=== PATIENT | female | born 1950 | race Caucasian/White ===

== ENCOUNTER → 2019-09-05 14:31 | Outpatient (BNVA) | payer MEDICARE, BC, SELFPAY | PROVIDERS: Family Provider Family Medicine; PCP Family Medicine; Visit Provider Nurse Practitioner Family | DX: R05 Cough (principal); J02.9 Acute pharyngitis, unspecified; J06.9 Acute upper respiratory infection, unspecified; Z20.828 Contact with and (suspected) exposure to other viral communicable diseases; Z71.89 Other specified counseling | CPT/HCPCS: 87071; 87400; 87635; 87880 ==

== ENCOUNTER → 2019-11-29 12:51 | Outpatient (BNVA) | payer MEDICARE, BC, SELFPAY | PROVIDERS: Family Provider Family Medicine; PCP Family Medicine; Visit Provider Family Medicine | DX: I10 Essential (primary) hypertension (principal); E11.9 Type 2 diabetes mellitus without complications; E03.8 Other specified hypothyroidism; Z79.4 Long term (current) use of insulin; I70.1 Atherosclerosis of renal artery | CPT/HCPCS: 80053; 84443; 85025 ==

== ENCOUNTER 2019-12-06 07:59 | Outpatient (CLI) | payer MEDICARE, BC, SELFPAY ==
--- NOTE | 2019-12-06 08:00 | USCV_ITS ---
Vida Ramon Age: 68 Gender: F : 1950 Exam Date: 12/06/2019 08:21 Ordering Phys: Lauren May MD Technologist: Pita Cheatham Exam Location: [facility] [place] Indication: PT STATES HYPERTENSION Aortic Velocity @ SMA (cm/s) 52 RIGHT KIDNEY LEFT KIDNEY Velocity (cm/s) Velocity (cm/s) Sys/Pelayo Sys/Pelayo Resistive Index Resistive Index 17.5 / 6.5 0.63 Proximal Renal Artery 31.3 / 7.3 0.77 33.5 / 7.9 0.76 Mid Renal Artery 34.2 / 10.6 0.69 25.9 / 9.0 0.65 Distal Renal Artery 68.8 / 15.7 0.77 37.7 / 15.2 0.60 Hilar 66.9 / 23.6 0.65 28.9 / 6.9 0.76 Upper Pole 41.0 / 14.7 0.64 41.3 / 12.5 0.70 Mid Pole 34.2 / 9.6 0.72 36.8 / 11.3 0.69 Lower Pole 31.4 / 7.0 0.78 1.40 Renal Aortic Ratio 1.32 Accleration Index (cm/sec2) 518.00 Hilar 435.00 163.00 Upper Pole 254.00 151.00 Mid Pole 141.00 154.00 Lower Pole 105.00 93.2 Kidney Length (mm) 83.5 FINDINGS No evidence of abdominal aortic aneurysm. There is no evidence of hemodynamically significant right renal artery stenosis. There is no evidence of hemodynamically significant left renal artery stenosis. CONCLUSIONS There is no sonographic evidence of hemodynamically significant renal artery stenosis bilaterally. Dr. Agueda Diaz DO (Electronically Signed) Final Date: 06 December 2019 10:44 S
== END 2019-12-06 08:00 | disposition home or self-care (01) ==
PROVIDERS: PCP Family Medicine; Visit Provider Family Medicine
DX: I10 Essential (primary) hypertension (principal)
CPT/HCPCS: 93975